=== PATIENT | female | born 1945 | race African-American/Black ===

== ENCOUNTER 2017-08-11 23:16 | Observation (INO) | payer SELFPAY ==
[2017-08-11] MEDS ORDERED: Albuterol/Ipratropium 3.0-0.5 MG/3 ML Neb Soln NEB ONE (23:28)
[2017-08-11] MEDS ORDERED: methylPREDNISolone Sodium Succinate 125 MG/2 ML SDV IVPUSH ONE (23:28)
[2017-08-11] MEDS ORDERED: Sodium Chloride 0.9% 1,000 ML IV SCH (23:30)
--- NOTE | 2017-08-11 23:35 | EDM.PDOC ---
ED HPI GENERAL MEDICAL PROBLEM - General Chief Complaint: Respiratory Problem Stated Complaint: ASTHMA Time Seen by Provider: 08/11/17 23:34 Source of Information: Reports: Patient - History of Present Illness INITIAL COMMENTS - FREE TEXT/NARRATIVE: HISTORY AND PHYSICAL: History of present illness: [ Patient with history of COPD asthma has been out of her medication for a week or so as far as nebulizer treatments, she presents with audible wheeze and shortness of breath she is hypoxic on room air No fever nausea vomiting chills sweats no chest pain headache dizziness or palpitation no bowel or urine symptoms Patient has been out of her neb treatments for over a week ] Review of systems: As per history of present illness and below otherwise all systems reviewed and negative. Past medical history: As per history of present illness and as reviewed below otherwise noncontributory. Surgical history: As per history of present illness and as reviewed below otherwise noncontributory. Social history: No reported history of drug or alcohol abuse. Family history: As per history of present illness and as reviewed below otherwise noncontributory. Physical exam: HEENT: Atraumatic, normocephalic, pupils reactive, negative for conjunctival pallor or scleral icterus, mucous membranes moist, throat clear, neck supple, nontender, trachea midline. Lungs: Coarse breath sounds with expiratory wheeze throughout, breath sounds equal bilaterally, chest nontender. Heart: S1S2, regular, negative for clicks, rubs, or JVD. Abdomen: Soft, nondistended, nontender. Negative for masses or hepatosplenomegaly. Negative for costovertebral tenderness. Pelvis: Stable nontender. Genitourinary: Deferred. Rectal: Deferred. Extremities: Atraumatic, negative for cords or calf pain. Neurovascular unremarkable. Neuro: Awake, alert, oriented. Cranial nerves II through XII unremarkable. Cerebellum unremarkable. Motor and sensory unremarkable throughout. Exam nonfocal. Diagnostics: [Lab as below EKG Chest 1 view ] Therapeutics: [DuoNeb Solu-Medrol 125 mg IV ] Impression: [Hypoxia]-88% on room air COPD asthma Hypertension Definitive disposition and diagnosis as appropriate pending reevaluation and review of above. denies pain Pain Score (Numeric/FACES): 0 - Related Data Allergies Allergy/AdvReac Type Severity Reaction Status Date / Time No Known Allergies Allergy Verified 08/11/17 23:29 Home Meds: Home Meds Prednisone [IJD: predniSONE] 20 mg PO WITHBREAKFAST #12 tab 05/14/16 [Rx] Albuterol [IJD: Albuterol HFA] 2 puff INH ASDIRECTED PRN 08/11/17 [History] Past Medical History - Past Health History Medical/Surgical History: Denies Medical/Surgical History HEENT History: Reports: None Cardiovascular History: Reports: None Respiratory History: Reports: Asthma Gastrointestinal History: Reports: None Genitourinary History: Reports: None 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: Musculoskeletal History: Reports: None Neurological History: Reports: None Psychiatric History: Reports: None Endocrine/Metabolic History: Reports: None Hematologic History: Reports: None Immunologic History: Reports: None Oncologic (Cancer) History: Reports: None Dermatologic History: Reports: None - Past Surgical History Head Surgeries/Procedures: Reports: None HEENT Surgical History: Reports: None Cardiovascular Surgical History: Reports: None GI Surgical History: Reports: None Female Surgical History: Reports: None Endocrine Surgical History: Reports: None Neurological Surgical History: Reports: None Musculoskeletal Surgical History: Reports: None Dermatological Surgical History: Reports: None Social & Family History - Tobacco Use Smoking Status *Q: Former Smoker Years of Tobacco use: 7 Packs/Tins Daily: 1 Used Tobacco, but Quit: Yes Month Tobacco Last Used: 2009 Second Hand Smoke Exposure: No - Recreational Drug Use Recreational Drug Use: No ED ROS GENERAL - Review of Systems Review Of Systems: ROS reveals no pertinent complaints other than HPI. ED EXAM, GENERAL - Physical Exam Exam: See Below Course - Vital Signs Last Recorded V/S: Last Vital Signs Temp 96.8 F 08/11/17 23:30 Pulse 81 08/12/17 00:39 Resp 24 H 08/12/17 00:39 BP 153/97 H 08/12/17 00:39 Pulse Ox 97 08/12/17 00:39 - Orders/Labs/Meds Orders: Active Orders 24 hr Category Date Time Status EKG Documentation Completion [RC] STAT Care 08/11/17 23:29 Active RT Aerosol Therapy [RC] ASDIRECTED Care 08/11/17 23:29 Active Chest 1V Frontal [CR] Stat Exams 08/11/17 23:29 Taken COMPREHENSIVE METABOLIC PN,CMP [CHEM] Stat Lab 08/11/17 23:28 Results TROPONIN I [CHEM] Stat Lab 08/11/17 23:28 Results Nitroglycerin [Nitrostat] Med 08/11/17 23:51 Active 0.4 mg SL Q5M PRN Sodium Chloride 0.9% [Normal Saline] 500 ml Med 08/11/17 23:45 Active IV STAT Medication Orders Sodium Chloride (Normal Saline) 500 mls @ 125 mls/hr IV STAT DUSTY Last Admin: 08/11/17 23:43 Dose: 125 mls/hr Nitroglycerin (Nitrostat) 0.4 mg SL Q5M PRN PRN Reason: Chest Pain Labs: Laboratory Tests 08/11/17 08/11/17 08/12/17 Range/Units 23:28 23:28 00:15 WBC 10.86 (4.0-11.0) K/uL RBC 5.62 (4.30-5.90) M/uL Hgb 16.0 (12.0-16.0) g/dL Hct 48.9 H (36.0-46.0) % MCV 87.0 (80.0-98.0) fL MCH 28.5 (27.0-32.0) pg MCHC 32.7 (31.0-37.0) g/dL RDW Std Deviation 41.2 (28.0-62.0) fl RDW Coeff of Jose 13 (11.0-15.0) % Plt Count 218 (150-400) K/uL MPV 11.00 (7.40-12.00) fL Neut % (Auto) 29.9 L (48.0-80.0) % Lymph % (Auto) 60.0 H (16.0-40.0) % [place] % (Auto) 5.8 (0.0-15.0) % Eos % (Auto) 4.0 (0.0-7.0) % Baso % (Auto) 0.3 (0.0-1.5) % Neut # (Auto) 3.3 (1.4-5.7) K/uL Lymph # (Auto) 6.5 H (0.6-2.4) K/uL [place] # (Auto) 0.6 (0.0-0.8) K/uL Eos # (Auto) 0.4 (0.0-0.7) K/uL Baso # (Auto) 0.0 (0.0-0.1) K/uL Nucleated RBC % 0.0 /100WBC Nucleated RBCs # 0 K/uL Sodium 141 (136-146) mmol/L Potassium 4.3 (3.5-5.1) mmol/L Chloride 104 (98-110) mmol/L Carbon Dioxide 27 (21-31) mmol/L BUN 16 (6.0-23.0) mg/dL Creatinine 0.8 (0.6-1.5) mg/dL Est Cr Clr Drug Dosing 47.00 mL/min Estimated GFR (MDRD) > 60.0 ml/min Glucose 129 H (60-110) mg/dL Calcium 9.7 (8.8-10.8) mg/dL Total Bilirubin 0.3 (0.1-1.5) mg/dL AST 30 (5-40) IU/L ALT 16 (8-54) IU/L Alkaline Phosphatase 100 (40-150) Total Protein 8.9 H (6.0-8.0) g/dL Albumin 4.4 (3.4-4.8) g/dL Globulin 4.5 H (2.0-3.5) g/dL Albumin/Globulin Ratio 1.0 L (1.3-2.8) Urine Color YELLOW Urine Appearance CLEAR Urine pH 6.5 (5.0-8.0) Ur Specific [place] 1.010 (1.001-1.035) Urine Protein TRACE (NEGATIVE) mg/dL Urine Glucose (UA) NEGATIVE (NEGATIVE) mg/dL Urine Ketones NEGATIVE (NEGATIVE) mg/dL Urine Occult Blood TRACE-INTACT (NEGATIVE) Urine Nitrite NEGATIVE (NEGATIVE) Urine Bilirubin NEGATIVE (NEGATIVE) Urine Urobilinogen 0.2 (<2.0) EU/dL Ur Leukocyte Esterase NEGATIVE (NEGATIVE) Urine RBC 0-1 (0-2/HPF) Urine WBC 0-3 (0-5/HPF) Ur Epithelial Cells OCCASIONAL (NONE-FEW) Urine Bacteria RARE (NEGATIVE) Meds: Medications Generic Name Dose Route Start Last Admin Trade Name Freq PRN Reason Stop Dose Admin Sodium Chloride 500 mls @ 125 mls/hr 08/11/17 23:45 08/11/17 23:43 Normal Saline IV 125 mls/hr STAT DUSTY Administration Nitroglycerin 0.4 mg 08/11/17 23:51 Nitrostat SL Q5M PRN Chest Pain Discontinued Medications Generic Name Dose Route Start Last Admin Trade Name Yunior PRN Reason Stop Dose Admin Albuterol/Ipratropium 3 ml 08/11/17 23:28 08/11/17 23:38 Duoneb 3.0-0.5 Mg/3 Ml NEB 08/11/17 23:29 3 ml ONETIME ONE Administration Enalaprilat 1.25 mg 08/11/17 23:52 08/12/17 00:04 Vasotec Iv IVPUSH 08/11/17 23:53 1.25 mg ONETIME ONE Administration Sodium Chloride 1,000 mls @ 125 mls/hr 08/11/17 23:30 Normal Saline IV STAT [facility] Methylprednisolone Sodium Succinate 125 mg 08/11/17 23:28 08/11/17 23:38 Solu-Medrol IVPUSH 08/11/17 23:29 125 mg ONETIME ONE Administration Departure - Departure Time of Disposition: 00:43 Disposition: Admitted As Inpatient 68 Condition: Fair Clinical Impression: Hypoxia - Discharge Information Referrals: PCP,None [Primary Care Provider] - Forms: ED Department Discharge - My Orders Last 24 Hours: My Active Orders 08/11/17 23:28 COMPREHENSIVE METABOLIC PN,CMP [CHEM] Stat TROPONIN I [CHEM] Stat 08/11/17 23:29 EKG Documentation Completion [RC] STAT RT Aerosol Therapy [RC] ASDIRECTED Chest 1V Frontal [CR] Stat 08/11/17 23:45 Sodium Chloride 0.9% [Normal Saline] 500 ml IV STAT 08/11/17 23:51 Nitroglycerin [Nitrostat] 0.4 mg SL Q5M PRN - Assessment/Plan Last 24 Hours: My Active Orders 08/11/17 23:28 COMPREHENSIVE METABOLIC PN,CMP [CHEM] Stat TROPONIN I [CHEM] Stat 08/11/17 23:29 EKG Documentation Completion [RC] STAT RT Aerosol Therapy [RC] ASDIRECTED Chest 1V Frontal [CR] Stat 08/11/17 23:45 Sodium Chloride 0.9% [Normal Saline] 500 ml IV STAT 08/11/17 23:51 Nitroglycerin [Nitrostat] 0.4 mg SL Q5M PRN
[2017-08-11] MEDS ORDERED: Sodium Chloride 0.9% 500 ML IV SCH (23:45)
[2017-08-11] MEDS ORDERED: Nitroglycerin 0.4 MG Tab.SL SL PRN (23:51)
[2017-08-11] MEDS ORDERED: Enalaprilat 1.25 MG/ML SDV IVPUSH ONE (23:52)
[2017-08-11 23:54] LABS: CHLORIDE,CL 104 mmol/L (98-110); SODIUM,NA 141 mmol/L (136-146)
[2017-08-12] MEDS ORDERED: Acetaminophen 325 MG Tab PO PRN (01:23)
[2017-08-12] MEDS ORDERED: hydrALAZINE 20 MG/ML SDV IVPUSH PRN (01:24)
[2017-08-12] MEDS ORDERED: Sodium Chloride 0.9% 2.5 ML Syringe FLUSH PRN (01:30)
[2017-08-12] MEDS ORDERED: Sodium Chloride 0.9% 10 ML Syringe FLUSH PRN (01:30)
[2017-08-12] MEDS: Albuterol/Ipratropium 3.0-0.5 MG/3 ML Neb Soln NEB SCH ×3 (03:56→10:19)
[2017-08-12] MEDS ORDERED: methylPREDNISolone Sodium Succinate 125 MG/2 ML SDV IVPUSH ONE (05:00)
[2017-08-12] MEDS ORDERED: Albuterol/Ipratropium 3.0-0.5 MG/3 ML Neb Soln NEB SCH (05:00)
--- NOTE | 2017-08-12 11:04 | PCM.HP ---
H&P History of Present Illness - General Date of Service: 08/12/17 Admit Problem/Dx: Admission Diagnosis/Problem Admission Diagnosis/Problem Hypoxia Source of Information: Patient, Family History Limitations: Reports: No Limitations - History of Present Illness Initial Comments - Free Text/Narative: Note: This is admission and discharge summary in one document. 72-year-old female from [facility] accompanied by daughter who helps with translation presenting to the ER on 08/11/17 with shortness of breath with PMH of asthma. Daughter states that her mother began to have some shortness of breath with wheezing approximately one day before presenting to the emergency room. She states that they recently ran out of her albuterol rescue inhaler. Secondary to her symptoms not improving they presented to the emergency room on the evening of 08/11/17. Daughter states that her mother does not use her rescue inhaler on a regular basis. Less than once a week. She states that her primary exacerbating factors are cold weather and with the change in season she has been more symptomatic. During other parts of the year where it is warmer she does not use her rescue inhaler at all. She denies any associated fever, chills , malaise, nausea, vomiting, diarrhea or other signs of systemic illness. She has no other significant medical history and takes no other medications other than the occasional albuterol rescue inhaler. She has been in [facility] for approximately 2 years. Her daughter has been here for 4. She does not have a primary care provider but would like to be set up with one. In emergency department patient was found to be hypoxic which resolved with DuoNeb's and IV Solu-Medrol 125 mg. Patient was admitted overnight and given duo nebs every 4 hours with 1 additional dose of Solu-Medrol. CBC, CMP were unremarkable. On the first morning of admission patient was saturating 97% on room air and had no further episodes of shortness of breath. She was afebrile throughout her stay and was discharged in good condition with a follow-up appointment made for a primary care provider, prednisone 40 mg twice a day 5 days, and a new albuterol rescue inhaler. Patient was instructed to return immediately if she had any return of her shortness of breath. Patient has mild asthma but would benefit from further pulmonary function tests on follow-up with her PCP. denies pain Pain Score (Numeric/FACES): 0 - Related Data Allergies/Adverse Reactions: Allergies Allergy/AdvReac Type Severity Reaction Status Date / Time No Known Allergies Allergy Verified 08/11/17 23:29 Home Medications: Home Meds Prednisone [IJD: predniSONE] 20 mg PO WITHBREAKFAST #12 tab 05/14/16 [Rx] Albuterol [IJD: Albuterol HFA] 2 puff INH ASDIRECTED PRN 08/11/17 [History] Past Medical History - Past Health History Medical/Surgical History: Denies Medical/Surgical History HEENT History: Reports: None Cardiovascular History: Reports: None Respiratory History: Reports: Asthma Gastrointestinal History: Reports: None Genitourinary History: Reports: None 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 History: Reports: None Neurological History: Reports: None Psychiatric History: Reports: None Endocrine/Metabolic History: Reports: None Hematologic History: Reports: None Immunologic History: Reports: None Oncologic (Cancer) History: Reports: None Dermatologic History: Reports: None - Infectious Disease History Infectious Disease History: Reports: Chicken Pox - Past Surgical History Head Surgeries/Procedures: Reports: None HEENT Surgical History: Reports: None Cardiovascular Surgical History: Reports: None GI Surgical History: Reports: None Female Surgical History: Reports: None Endocrine Surgical History: Reports: None Neurological Surgical History: Reports: None Musculoskeletal Surgical History: Reports: None Dermatological Surgical History: Reports: None Social & Family History - Family History Family Medical History: Noncontributory - Tobacco Use Smoking Status *Q: Former Smoker Years of Tobacco use: 7 Packs/Tins Daily: 1 Used Tobacco, but Quit: Yes Month Tobacco Last Used: 08/1998 Second Hand Smoke Exposure: No - Caffeine Use Caffeine Use: Reports: Coffee - Recreational Drug Use Recreational Drug Use: No H&P Review of Systems - Review of Systems: Review Of Systems: See Below General: Denies: Fever, Chills, Malaise, Weakness, Fatigue HEENT: Denies: Dysphasia, Headaches, Sinus Congestion, Sore Throat Pulmonary: Reports: Cough. Denies: Shortness of Breath, Wheezing, Sputum Cardiovascular: Denies: Chest Pain, Palpitations, Edema Gastrointestinal: Denies: Abdominal Pain, Black Stool, Bloody Stool, Nausea, Vomiting Genitourinary: Denies: Dysuria Musculoskeletal: Denies: Neck Pain, Leg Pain Skin: Denies: Cyanosis Psychiatric: Denies: Confusion Neurological: Denies: Confusion, Dizziness, Headache Exam - Exam Exam: See Below - Vital Signs Vital Signs: Last Vital Signs Temp 97.2 F 08/12/17 08:22 Pulse 89 08/12/17 08:22 Resp 18 08/12/17 08:22 BP 122/60 08/12/17 08:22 Pulse Ox 94 L 08/12/17 08:22 Weight: 54.25 kg - Exam Quality Assessment: DVT Prophylaxis General: Alert, Oriented, Cooperative HEENT: Conjunctiva Clear, EACs Clear, EOMI, Hearing Intact, Mucosa Moist & [place] , Nares Patent, Normal Nasal Septum, Posterior Pharynx Clear, PERRLA Neck: Supple, Trachea Midline, 2 Lungs: Clear to Auscultation, Normal Respiratory Effort. No: Crackles, Rales, Wheezing Cardiovascular: Regular Rate, Regular Rhythm, Normal S1, Normal S2 GI/Abdominal Exam: Normal Bowel Sounds, Soft, Non-Tender, No Organomegaly, No Distention, No Abnormal Bruit, No Mass Back Exam: Normal Inspection Extremities: Normal Inspection, Non-Tender, No Pedal Edema, Normal Capillary Refill Peripheral Pulses: 2+: Radial (L), Radial (R), Posterior Tibial (L), Posterior Tibial (R), Dorsalis Pedis (L), Dorsalis Pedis (R) Skin: Warm, Dry, Intact Neurological: Cranial Nerves Intact Neuro Extensive - Mental Status: Alert, Oriented x3, Normal Mood/Affect, Normal Cognition Neuro Extensive - Motor, Sensory, Reflexes: CN II-XII Intact, Normal Gait, Normal Reflexes Psychiatric: Alert, Normal Affect, Normal Mood - Patient Data Lab Results Last 24 hrs: Laboratory Results - last 24 hr 08/12/17 08/12/17 08/12/17 Range/Units 05:36 05:36 05:36 WBC 8.30 (4.0-11.0) K/uL RBC 4.97 (4.30-5.90) M/uL Hgb 14.0 (12.0-16.0) g/dL Hct 43.1 (36.0-46.0) % MCV 86.7 (80.0-98.0) fL MCH 28.2 (27.0-32.0) pg MCHC 32.5 (31.0-37.0) g/dL RDW Std Deviation 40.9 (28.0-62.0) fl RDW Coeff of Jose 13 (11.0-15.0) % Plt Count 212 (150-400) K/uL MPV 11.00 (7.40-12.00) fL Neut % (Auto) 73.9 (48.0-80.0) % Lymph % (Auto) 25.9 (16.0-40.0) % [place] % (Auto) 0.1 (0.0-15.0) % Eos % (Auto) 0.0 (0.0-7.0) % Baso % (Auto) 0.1 (0.0-1.5) % Neut # (Auto) 6.1 H (1.4-5.7) K/uL Lymph # (Auto) 2.2 (0.6-2.4) K/uL [place] # (Auto) 0.0 (0.0-0.8) K/uL Eos # (Auto) 0.0 (0.0-0.7) K/uL Baso # (Auto) 0.0 (0.0-0.1) K/uL Nucleated RBC % 0.0 /100WBC Nucleated RBCs # 0 K/uL Sodium 139 (136-146) mmol/L Potassium 4.3 (3.5-5.1) mmol/L Chloride 105 (98-110) mmol/L Carbon Dioxide 24 (21-31) mmol/L BUN 23 (6.0-23.0) mg/dL Creatinine 1.2 (0.6-1.5) mg/dL Est Cr Clr Drug Dosing 31.33 mL/min Estimated GFR (MDRD) 53.8 ml/min Glucose 202 H (60-110) mg/dL Hemoglobin A1c 6.5 H (0.0-6.0) % Calcium 9.2 (8.8-10.8) mg/dL Total Bilirubin 0.3 (0.1-1.5) mg/dL AST 23 (5-40) IU/L ALT 14 (8-54) IU/L Alkaline Phosphatase 79 (40-150) Total Protein 7.3 (6.0-8.0) g/dL Albumin 3.9 (3.4-4.8) g/dL Globulin 3.4 (2.0-3.5) g/dL Albumin/Globulin Ratio 1.2 L (1.3-2.8) Result Diagrams: 08/12/17 05:36 08/12/17 05:36 *Q Meaningful Use (ADM) - VTE *Q VTE Criteria *Q: - Stroke *Q Stroke Criteria *Q: - AMI *Q AMI Criteria *Q: - Problem List (1) Exacerbation of asthma SNOMED Code(s): 154359489 ICD Code: J45.901 - UNSPECIFIED ASTHMA WITH (ACUTE) EXACERBATION Status: Acute Priority: High Current Visit: Yes Qualifiers: Asthma severity: mild Asthma persistence: persistent Qualified Code(s): J45.31 - Mild persistent asthma with (acute) exacerbation Problem List Initiated/Reviewed/Updated: Yes Orders Last 24hrs: Active Orders 24 hr Category Date Time Status Admission Status [Patient Status] [ADT] Routine ADT 08/12/17 01:21 Active RT Aerosol Therapy [RC] ASDIRECTED Care 08/12/17 01:27 Active Regular Diet [DIET] Diet 08/12/17 Breakfast Active INFLUENZA A+B AG SCREEN [RM] Stat Lab 08/12/17 08:23 Uncollected Acetaminophen [Tylenol] Med 08/12/17 01:23 Active 650 mg PO Q6H PRN Albuterol/Ipratropium [DuoNeb 3.0-0.5 MG/3 ML] Med 08/12/17 04:00 Active 3 ml NEB Q4HRRT Sodium Chloride 0.9% [Saline Flush] Med 08/12/17 01:30 Active 10 ml FLUSH ASDIRECTED PRN Sodium Chloride 0.9% [Saline Flush] Med 08/12/17 01:30 Active 2.5 ml FLUSH ASDIRECTED PRN hydrALAZINE [Apresoline] Med 08/12/17 01:24 Active 15 mg IVPUSH Q2H PRN Convert IV to Saline Lock [OM.PC] Routine Oth 08/12/17 01:30 Ordered Medication Orders Acetaminophen (Tylenol) 650 mg PO Q6H PRN PRN Reason: Pain Albuterol/Ipratropium (Duoneb 3.0-0.5 Mg/3 Ml) 3 ml NEB Q4HRRT DUSTY Last Admin: 08/12/17 10:19 Dose: 3 ml Admin: 08/12/17 06:18 Dose: 3 ml Admin: 08/12/17 03:56 Dose: 3 ml Hydralazine HCl (Apresoline) 15 mg IVPUSH Q2H PRN PRN Reason: Hypertension Last Admin: 08/12/17 01:43 Dose: 15 mg Nitroglycerin (Nitrostat) 0.4 mg SL Q5M PRN PRN Reason: Chest Pain Sodium Chloride (Saline Flush) 10 ml FLUSH ASDIRECTED PRN PRN Reason: Keep Vein Open Sodium Chloride (Saline Flush) 2.5 ml FLUSH ASDIRECTED PRN PRN Reason: Keep Vein Open Assessment/Plan Comment:: Note: This is admission and discharge summary in one document. 72-year-old female from [facility] accompanied by daughter who helps with translation presenting to the ER on 08/11/17 with shortness of breath with PMH of asthma. Daughter states that her mother began to have some shortness of breath with wheezing approximately one day before presenting to the emergency room. She states that they recently ran out of her albuterol rescue inhaler. Secondary to her symptoms not improving they presented to the emergency room on the evening of 08/11/17. Daughter states that her mother does not use her rescue inhaler on a regular basis. Less than once a week. She states that her primary exacerbating factors are cold weather and with the change in season she has been more symptomatic. During other parts of the year where it is warmer she does not use her rescue inhaler at all. She denies any associated fever, chills , malaise, nausea, vomiting, diarrhea or other signs of systemic illness. She has no other significant medical history and takes no other medications other than the occasional albuterol rescue inhaler. She has been in [facility] for approximately 2 years. Her daughter has been here for 4. She does not have a primary care provider but would like to be set up with one. In emergency department patient was found to be hypoxic which resolved with DuoNeb's and IV Solu-Medrol 125 mg. Patient was admitted overnight and given duo nebs every 4 hours with 1 additional dose of Solu-Medrol. CBC, CMP were unremarkable. On the first morning of admission patient was saturating 97% on room air and had no further episodes of shortness of breath. She was afebrile throughout her stay and was discharged in good condition with a follow-up appointment made for a primary care provider, prednisone 40 mg twice a day 5 days, and a new albuterol rescue inhaler. Patient was instructed to return immediately if she had any return of her shortness of breath. Patient has mild asthma but would benefit from further pulmonary function tests on follow-up with her PCP.
[2017-08-12 12:04] VITALS: BP 132/79
[2017-08-13] MEDS ORDERED: Enoxaparin 40 MG/0.4 ML Syringe SUBCUT SCH (09:00)
--- NOTE | 2017-08-15 13:28 | CR ---
EXAM DATE: 08/12/17 PATIENT'S AGE: 72 Patient: CURLY GENE Facility: [place], [place] Site . Site : 1945 Study: XRay Chest [id number] 11:52:40 PM Ordering Physician: Doctor Durán Final Report: HISTORY: Shortness of breath. FINDINGS: AP portable chest radiograph is compared with 24 February 2016. Cardiac silhouette is at the upper limits normal. Pulmonary vasculature is free of cephalization. No consolidation, pleural effusion or pneumothorax is seen. There is pleural thickening seen at the right upper thorax without change. IMPRESSION: No acute cardiopulmonary disease. Dictated by Caridad Thakur MD @ 08/11/2017 11:58:52 PM Dictated by: Caridad Thakur MD @ 08/11/2017 23:58:55 (Electronic Signature) Report Signed by Proxy. ST. PETER'S HEALTH PARTNERSClementine
== END 2017-08-12 13:10 | disposition home or self-care (01) ==
LOC: MW.ED 23:16 → MW.MS 08-12 00:44 → INTOOBSV 08-12 00:44
PROVIDERS: ADMIT Family Medicine; ATTEND Family Medicine
DX: J45.31 Mild persistent asthma with (acute) exacerbation (principal); Z87.891 Personal history of nicotine dependence
CPT/HCPCS: 36415; 71010; 80053; 81001; 83036; 84484; 85025; 87804; 93005; 94640; 96361; 96374; 96375; 99285; J0360; J2930; J7040; 96376; 99284; G0378

== ENCOUNTER 2018-09-17 18:55 | Emergency (ER) | payer SELFPAY ==
[2018-09-17] MEDS ORDERED: Albuterol/Ipratropium 3.0-0.5 MG/3 ML Neb Soln ONE (18:57)
[2018-09-17] MEDS ORDERED: Albuterol/Ipratropium 3.0-0.5 MG/3 ML Neb Soln NEB ONE (19:00)
[2018-09-17 19:03] VITALS: BP 235/134
[2018-09-17] MEDS ORDERED: methylPREDNISolone Sodium Succinate 125 MG/2 ML SDV IVPUSH ONE (19:32)
--- NOTE | 2018-09-17 19:36 | EDM.PDOC ---
ED HPI GENERAL MEDICAL PROBLEM - General Chief Complaint: Respiratory Problem Stated Complaint: ASTHMA- TROUBLE BREATHING Time Seen by Provider: 09/17/18 19:19 - History of Present Illness INITIAL COMMENTS - FREE TEXT/NARRATIVE: HISTORY AND PHYSICAL: History of present illness: Patient is a 73-year-old black female with past medical history significant for hypertension pseudotumor cerebri in bronchospasm who presents with a concern of shortness of breath she describes this as an asthmatic exacerbation she denies chest pain nausea vomiting fever chills or been no other complaints she denies influenza immunization there is a language challenge although she does have family here with her who does speak Malay and is translating. Review of systems: As per history of present illness and below otherwise all systems reviewed and negative. Past medical history: As per history of present illness and as reviewed below otherwise noncontributory. Surgical history: As per history of present illness and as reviewed below otherwise noncontributory. Social history: No reported history of drug or alcohol abuse. Family history: As per history of present illness and as reviewed below otherwise noncontributory. Physical exam: HEENT: Atraumatic, normocephalic, pupils reactive, negative for conjunctival pallor or scleral icterus, mucous membranes moist, throat clear, neck supple, nontender, trachea midline. Lungs: Diffuse intradural and extra wheezing no crackles no rhonchi breath sounds equal bilaterally, chest nontender. Heart: S1S2, regular, negative for clicks, rubs, or JVD. Abdomen: Soft, nondistended, nontender. Negative for masses or hepatosplenomegaly. Negative for costovertebral tenderness. Pelvis: Stable nontender. Genitourinary: Deferred. Rectal: Deferred. Extremities: Atraumatic, negative for cords or calf pain. Neurovascular unremarkable. Neuro: Awake, alert, follows commands and moves all extremities limited grossly nonfocal exam Diagnostics: CBC CMP troponin PT/INR chest x-ray EKG influenza screen Therapeutics: IV O2 monitor albuterol ipratropium nebulizer Solu-Medrol 125 IV Impression: #1 dyspnea #2 reactive airway disease #3 history hypertension #4 history of pseudotumor cerebri Definitive disposition and diagnosis as appropriate pending reevaluation and review of above. 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: Inhaler - Related Data Allergies Allergy/AdvReac Type Severity Reaction Status Date / Time No Known Allergies Allergy Verified 09/17/18 19:03 Home Meds: Home Meds Albuterol [IJD: Albuterol HFA] 2 puff INH ASDIRECTED PRN #1 inhaler 08/12/17 [Rx ] Albuterol/Ipratropium [DuoNeb 3.0-0.5 MG/3 ML] 1 dose INH Q4HR PRN #1 box [Rx] Past Medical History - Past Health History Medical/Surgical History: Denies Medical/Surgical History HEENT History: Reports: None Cardiovascular History: Reports: Hypertension Respiratory History: Reports: Asthma Gastrointestinal History: Reports: None Genitourinary History: Reports: None [employer]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: Musculoskeletal History: Reports: None Neurological History: Reports: None Psychiatric History: Reports: None Endocrine/Metabolic History: Reports: None Hematologic History: Reports: None Immunologic History: Reports: None Oncologic (Cancer) History: Reports: None Dermatologic History: Reports: None - Infectious Disease History Infectious Disease History: Reports: Chicken Pox - Past Surgical History Head Surgeries/Procedures: Reports: None HEENT Surgical History: Reports: None Cardiovascular Surgical History: Reports: None GI Surgical History: Reports: None Female Surgical History: Reports: None Endocrine Surgical History: Reports: None Neurological Surgical History: Reports: None Musculoskeletal Surgical History: Reports: None Dermatological Surgical History: Reports: None Social & Family History - Family History Family Medical History: Noncontributory - Tobacco Use Smoking Status *Q: Never Smoker - Caffeine Use Caffeine Use: Reports: Coffee Caffeine Use Comment: daily - Recreational Drug Use Recreational Drug Use: No ED ROS GENERAL - Review of Systems Review Of Systems: ROS reveals no pertinent complaints other than HPI. ED EXAM, GENERAL - Physical Exam Exam: See Below (See dictation) Course - Vital Signs Text/Narrative:: Patient emerged from her course has been unremarkable she has marked improvement I discussed with her due to her advanced age and comorbidities admission for observation patient and family request discharge home and will follow-up with her private doctor she'll be discharged on Medrol taking as prescribed and continue her current medications including inhalers as directed and return as needed as discussed Last Recorded V/S: Last Vital Signs Temp 36.3 C 09/17/18 18:55 Pulse 108 H 09/17/18 18:55 Resp 32 H 09/17/18 18:55 BP 235/134 H 09/17/18 18:55 Pulse Ox 93 L 09/17/18 18:55 - Orders/Labs/Meds Orders: Active Orders 24 hr Category Date Time Status Cardiac Monitoring [RC] . DIRECTED Care 09/17/18 19:29 Active EKG Documentation Completion [RC] STAT Care 09/17/18 19:29 Active Pulse Oximetry [RC] ASDIRECTED Care 09/17/18 19:29 Active RT Aerosol Therapy [RC] ASDIRECTED Care 09/17/18 19:43 Active Labs: Laboratory Tests 09/17/18 09/17/18 09/17/18 Range/Units 19:10 19:10 19:10 WBC 8.90 (4.0-11.0) K/uL RBC 5.73 (4.30-5.90) M/uL Hgb 16.1 H (12.0-16.0) g/dL Hct 48.4 H (36.0-46.0) % MCV 84.5 (80.0-98.0) fL MCH 28.1 (27.0-32.0) pg MCHC 33.3 (31.0-37.0) g/dL RDW Std Deviation 40.4 (28.0-62.0) fl RDW Coeff of Jose 13 (11.0-15.0) % Plt Count 197 (150-400) K/uL MPV 10.70 (7.40-12.00) fL Neut % (Auto) 34.7 L (48.0-80.0) % Lymph % (Auto) 55.2 H (16.0-40.0) % [place] % (Auto) 6.6 (0.0-15.0) % Eos % (Auto) 3.1 (0.0-7.0) % Baso % (Auto) 0.4 (0.0-1.5) % Neut # (Auto) 3.1 (1.4-5.7) K/uL Lymph # (Auto) 4.9 H (0.6-2.4) K/uL [place] # (Auto) 0.6 (0.0-0.8) K/uL Eos # (Auto) 0.3 (0.0-0.7) K/uL Baso # (Auto) 0.0 (0.0-0.1) K/uL Nucleated RBC % 0.0 /100WBC Nucleated RBCs # 0 K/uL INR 1.03 Sodium 142 (136-145) mmol/L Potassium 4.2 (3.5-5.1) mmol/L Chloride 104 (98-107) mmol/L Carbon Dioxide 26.8 (21.0-32.0) mmol/L BUN 18 (7.0-18.0) mg/dL Creatinine 0.9 (0.6-1.0) mg/dL Est Cr Clr Drug Dosing TNP Estimated GFR (MDRD) > 60.0 ml/min Glucose 170 H (74-106) mg/dL Calcium 9.9 (8.5-10.1) mg/dL Total Bilirubin 0.1 L (0.2-1.0) mg/dL AST 27 (15-37) IU/L ALT 15 (14-63) IU/L Alkaline Phosphatase 114 (46-116) U/L Troponin I < 0.050 (0.000-0.056) ng/mL B-Natriuretic Peptide (<100) PG/ML Total Protein 8.9 H (6.4-8.2) g/dL Albumin 4.1 (3.4-5.0) g/dL Globulin 4.8 H (2.6-4.0) g/dL Albumin/Globulin Ratio 0.9 (0.9-1.6) 09/17/18 Range/Units 19:10 WBC (4.0-11.0) K/uL RBC (4.30-5.90) M/uL Hgb (12.0-16.0) g/dL Hct (36.0-46.0) % MCV (80.0-98.0) fL MCH (27.0-32.0) pg MCHC (31.0-37.0) g/dL RDW Std Deviation (28.0-62.0) fl RDW Coeff of Jose (11.0-15.0) % Plt Count (150-400) K/uL MPV (7.40-12.00) fL Neut % (Auto) (48.0-80.0) % Lymph % (Auto) (16.0-40.0) % [place] % (Auto) (0.0-15.0) % Eos % (Auto) (0.0-7.0) % Baso % (Auto) (0.0-1.5) % Neut # (Auto) (1.4-5.7) K/uL Lymph # (Auto) (0.6-2.4) K/uL [place] # (Auto) (0.0-0.8) K/uL Eos # (Auto) (0.0-0.7) K/uL Baso # (Auto) (0.0-0.1) K/uL Nucleated RBC % /100WBC Nucleated RBCs # K/uL INR Sodium (136-145) mmol/L Potassium (3.5-5.1) mmol/L Chloride (98-107) mmol/L Carbon Dioxide (21.0-32.0) mmol/L BUN (7.0-18.0) mg/dL Creatinine (0.6-1.0) mg/dL Est Cr Clr Drug Dosing Estimated GFR (MDRD) ml/min Glucose (74-106) mg/dL Calcium (8.5-10.1) mg/dL Total Bilirubin (0.2-1.0) mg/dL AST (15-37) IU/L ALT (14-63) IU/L Alkaline Phosphatase (46-116) U/L Troponin I (0.000-0.056) ng/mL B-Natriuretic Peptide 51 (<100) PG/ML Total Protein (6.4-8.2) g/dL Albumin (3.4-5.0) g/dL Globulin (2.6-4.0) g/dL Albumin/Globulin Ratio (0.9-1.6) Meds: Medications Discontinued Medications Generic Name Dose Route Start Last Admin Trade Name Freq PRN Reason Stop Dose Admin Albuterol/Ipratropium Confirm 09/17/18 18:57 09/17/18 19:42 Duoneb 3.0-0.5 Mg/3 Ml Administered 09/17/18 18:58 Not Given Dose 3 ml .ROUTE .STK-MED ONE Albuterol/Ipratropium 3 ml 09/17/18 19:00 09/17/18 19:47 Duoneb 3.0-0.5 Mg/3 Ml NEB 01/28/19 19:01 3 ml ONETIME ONE Administration Methylprednisolone Sodium Succinate 125 mg 09/17/18 19:32 09/17/18 19:48 Solu-Medrol IVPUSH 09/17/18 19:33 125 mg ONETIME ONE Administration Departure - Departure Time of Disposition: 19:36 Disposition: Home, Self-Care 01 Condition: Good Clinical Impression: Reactive airway disease, Hypertension - Discharge Information Forms: ED Department Discharge Additional Instructions: The following information is given to patients seen in the emergency department who are being discharged to home. This information is to outline your options for follow-up care. We provide all patients seen in our emergency department with a follow-up referral. The need for follow-up, as well as the timing and circumstances, are variable depending upon the specifics of your emergency department visit. If you don't have a primary care physician on staff, we will provide you with a referral. We always advise you to contact your personal physician following an emergency department visit to inform them of the circumstance of the visit and for follow-up with them and/or the need for any referrals to a consulting specialist. The emergency department will also refer you to a specialist when appropriate. This referral assures that you have the opportunity for followup care with a specialist. All of these measure are taken in an effort to provide you with optimal care, which includes your followup. Under all circumstances we always encourage you to contact your private physician who remains a resource for coordinating your care. When calling for followup care, please make the office aware that this follow-up is from your recent emergency room visit. If for any reason you are refused follow-up, please contact the [facility] emergency department at and asked to speak to the emergency department charge nurse. Medrol as prescribed continue inhalers as directed follow-up primary medical doctor continue current medications as prescribed and return as needed as discussed - My Orders Last 24 Hours: My Active Orders 09/17/18 19:29 Cardiac Monitoring [RC] . DIRECTED EKG Documentation Completion [RC] STAT Pulse Oximetry [RC] ASDIRECTED 09/17/18 19:43 RT Aerosol Therapy [RC] ASDIRECTED - Assessment/Plan Last 24 Hours: My Active Orders 09/17/18 19:29 Cardiac Monitoring [RC] . DIRECTED EKG Documentation Completion [RC] STAT Pulse Oximetry [RC] ASDIRECTED 09/17/18 19:43 RT Aerosol Therapy [RC] ASDIRECTED
[2018-09-17 19:50] LABS: CHLORIDE,CL 104 mmol/L (98-107); SODIUM,NA 142 mmol/L (136-145)
--- NOTE | 2018-09-17 20:05 | CR ---
INDICATION: SOB, asthma TECHNIQUE: Chest 1 view. COMPARISON: 07/28/18 FINDINGS: Cardiovascular and mediastinum: Heart size and vasculature are normal in caliber and appearance. Mediastinum is within normal limits. Lungs and pleural spaces: Lungs are clear. No sign of infiltrate or mass. No sign of pleural effusion. No pneumothorax. Bones and soft tissues: No significant findings. IMPRESSION: Unremarkable chest. Dictated by: Cesar Barahona MD @ 09/17/2018 20:05:01 (Electronically Signed)
== END 2018-09-17 20:42 | disposition home or self-care (01) ==
LOC: MW.ED 18:55
DX: J45.909 Unspecified asthma, uncomplicated (principal); I10 Essential (primary) hypertension
CPT/HCPCS: 36415; 71045; 80053; 83880; 84484; 85025; 85610; 87804; 93005; 94640; 96374; 99285; J2930; 99284; J7620-GY

== ENCOUNTER 2020-11-09 13:09 | Emergency (ER) | payer OTHER ==
[2020-11-09] MEDS ORDERED: Albuterol/Ipratropium 3.0-0.5 MG/3 ML Neb Soln ONE (13:17)
--- NOTE | 2020-11-09 13:18 | EDM.PDOC ---
ED HPI GENERAL MEDICAL PROBLEM - General Chief Complaint: Respiratory Problem Stated Complaint: CANT BREATHE Time Seen by Provider: 11/09/20 13:16 Source of Information: Reports: Patient, Family History Limitations: Reports: Language Barrier - History of Present Illness INITIAL COMMENTS - FREE TEXT/NARRATIVE: Patient is a 75-year-old female who presents today for shortness of breath. Patient has history of asthma family states she went to her albuterol yesterday and since then has not had it. Patient has some wheezing feels like she cannot catch her breath. Patient denies any cough fever chills chest pain nausea vomiting. Patient dates that she rarely to use albuterol daily. Patient that she has not been admitted to the hospital in the past year but has visited for her asthma. - Related Data Allergies Allergy/AdvReac Type Severity Reaction Status Date / Time No Known Allergies Allergy Verified 11/09/20 13:12 Home Meds: Home Meds Albuterol [IJD: Albuterol HFA] 2 puff INH ASDIRECTED PRN #1 inhaler 08/12/17 [Rx] Albuterol/Ipratropium [DuoNeb 3.0-0.5 MG/3 ML] 1 dose INH Q4HR PRN #1 box 07/28/18 [Rx] predniSONE [Prednisone] 50 mg PO DAILY 5 Days #5 tablet 11/09/20 [Rx] Past Medical History - Past Health History Medical/Surgical History: Denies Medical/Surgical History HEENT History: Reports: None Cardiovascular History: Reports: Hypertension Respiratory History: Reports: Asthma Gastrointestinal History: Reports: None Genitourinary History: Reports: None 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 History: Reports: None Neurological History: Reports: None Psychiatric History: Reports: None Endocrine/Metabolic History: Reports: None Hematologic History: Reports: None Immunologic History: Reports: None Oncologic (Cancer) History: Reports: None Dermatologic History: Reports: None - Infectious Disease History Infectious Disease History: Reports: Chicken Pox - Past Surgical History Head Surgeries/Procedures: Reports: None HEENT Surgical History: Reports: None Cardiovascular Surgical History: Reports: None GI Surgical History: Reports: None Female Surgical History: Reports: None Endocrine Surgical History: Reports: None Neurological Surgical History: Reports: None Musculoskeletal Surgical History: Reports: None Dermatological Surgical History: Reports: None Social & Family History - Family History Family Medical History: No Pertinent Family History - Tobacco Use Tobacco Use Status *Q: Former Tobacco User Used Tobacco, but Quit: Yes Month/Year Tobacco Last Used: 1998 - Caffeine Use Caffeine Use: Reports: Coffee Caffeine Use Comment: daily - Recreational Drug Use Recreational Drug Use: No ED ROS GENERAL - Review of Systems Review Of Systems: See Below Constitutional: Reports: No Symptoms HEENT: Reports: No Symptoms Respiratory: Reports: Shortness of Breath, Wheezing Cardiovascular: Reports: No Symptoms Endocrine: Reports: No Symptoms GI/Abdominal: Reports: No Symptoms : Reports: No Symptoms Musculoskeletal: Reports: No Symptoms Skin: Reports: No Symptoms Neurological: Reports: No Symptoms Psychiatric: Reports: No Symptoms Hematologic/Lymphatic: Reports: No Symptoms Immunologic: Reports: No Symptoms ED EXAM, GENERAL - Physical Exam Exam: See Below Exam Limited By: Language Barrier General Appearance: Alert, WD/WN Head: Atraumatic Respiratory/Chest: No Respiratory Distress, Wheezing Cardiovascular: Normal Peripheral Pulses, Regular Rate, Rhythm GI/Abdominal: Normal Bowel Sounds, Soft, Non-Tender Neurological: Alert, Oriented #1 Interpretation EKG Date: 11/09/20 Time: 13:15 Rhythm: Other (sinus tachy) Rate (Beats/Min): 105 ST-T: Normal Course - Vital Signs Last Recorded V/S: Last Vital Signs Temp 97.6 F 11/09/20 13:12 Pulse 81 11/09/20 14:05 Resp 18 11/09/20 14:05 BP 135/87 11/09/20 14:05 Pulse Ox 94 L 11/09/20 14:05 - Orders/Labs/Meds Orders: Active Orders 24 hr Category Date Time Status RT Aerosol Therapy [RC] ASDIRECTED Care 11/09/20 14:27 Active Labs: Laboratory Tests 11/09/20 11/09/20 Range/Units 13:20 13:20 WBC 8.69 (4.0-11.0) K/uL RBC 5.52 (4.30-5.90) M/uL Hgb 15.8 (12.0-16.0) g/dL Hct 48.5 H (36.0-46.0) % MCV 87.9 (80.0-98.0) fL MCH 28.6 (27.0-32.0) pg MCHC 32.6 (31.0-37.0) g/dL RDW Std Deviation 42.6 (28.0-62.0) fl RDW Coeff of Jose 13 (11.0-15.0) % Plt Count 194 (150-400) K/uL MPV 11.30 (7.40-12.00) fL Neut % (Auto) 29.3 L (48.0-80.0) % Lymph % (Auto) 59.0 H (16.0-40.0) % [place] % (Auto) 7.4 (0.0-15.0) % Eos % (Auto) 3.7 (0.0-7.0) % Baso % (Auto) 0.6 (0.0-1.5) % Neut # (Auto) 2.6 (1.4-5.7) K/uL Lymph # (Auto) 5.1 H (0.6-2.4) K/uL [place] # (Auto) 0.6 (0.0-0.8) K/uL Eos # (Auto) 0.3 (0.0-0.7) K/uL Baso # (Auto) 0.1 (0.0-0.1) K/uL Nucleated RBC % 0.0 /100WBC Nucleated RBCs # 0 K/uL Sodium 140 (136-145) mmol/L Potassium 4.2 (3.5-5.1) mmol/L Chloride 102 (98-107) mmol/L Carbon Dioxide 31.3 (21.0-32.0) mmol/L BUN 19 H (7.0-18.0) mg/dL Creatinine 0.8 (0.6-1.0) mg/dL Est Cr Clr Drug Dosing 44.99 mL/min Estimated GFR (MDRD) > 60.0 ml/min Glucose 124 H (74-106) mg/dL Calcium 9.2 (8.5-10.1) mg/dL Meds: Medications Discontinued Medications Generic Name Dose Route Start Last Admin Trade Name Freq PRN Reason Stop Dose Admin Albuterol/Ipratropium Confirm 11/09/20 13:17 11/09/20 13:26 Albuterol/Ipratropium 3.0-0.5 Mg/3 Ml Neb Soln Administered 11/09/20 13:18 3 ml Dose Administration 3 ml .ROUTE .STK-MED ONE Albuterol/Ipratropium 3 ml 11/09/20 14:27 11/09/20 14:37 Albuterol/Ipratropium 3.0-0.5 Mg/3 Ml Neb Soln NEB 11/09/20 14:28 3 ml ONETIME ONE Administration Magnesium Sulfate 1 gm/ Sodium 52 mls @ 104 mls/hr 11/09/20 13:45 11/09/20 14:06 Chloride IV 11/09/20 14:14 104 mls/hr NOW ONE Administration Methylprednisolone Sodium Succinate 125 mg 11/09/20 13:24 11/09/20 13:31 Methylprednisolone Sodium Succinate 125 Mg/2 Ml Sdv IVPUSH 11/09/20 13:25 125 mg ONETIME ONE Administration - Re-Assessments/Exams Free Text/Narrative Re-Assessment/Exam: 11/09/20 15:01 Patient oxygen saturations improved. Patient also states she is breathing better feels fine. Asked patient how she feels with this patient dressings were to go home. Patient was given DuoNeb steroids magnesium. Will discharge home on steroids and strict return precautions. Departure - Departure Time of Disposition: 15:01 Disposition: Home, Self-Care 01 Condition: Good Clinical Impression: Asthma exacerbation Qualifiers: Asthma severity: moderate Asthma persistence: persistent Qualified Code(s): J45.41 - Moderate persistent asthma with (acute) exacerbation - Discharge Information *PRESCRIPTION DRUG MONITORING PROGRAM REVIEWED*: Not Applicable *COPY OF PRESCRIPTION DRUG MONITORING REPORT IN PATIENT NADINE: Not Applicable Prescriptions: predniSONE [Prednisone] 50 mg PO DAILY 5 Days #5 tablet Instructions: Asthma, Adult Forms: ED Department Discharge Additional Instructions: The following information is given to patients seen in the emergency department who are being discharged to home. This information is to outline your options for follow-up care. We provide all patients seen in our emergency department with a follow-up referral. The need for follow-up, as well as the timing and circumstances, are variable depending upon the specifics of your emergency department visit. If you don't have a primary care physician on staff, we will provide you with a referral. We always advise you to contact your personal physician following an emergency department visit to inform them of the circumstance of the visit and for follow-up with them and/or the need for any referrals to a consulting specialist. The emergency department will also refer you to a specialist when appropriate. This referral assures that you have the opportunity for follow-up care with a specialist. All of these measure are taken in an effort to provide you with optimal care, which includes your follow-up. Under all circumstances we always encourage you to contact your private physician who remains a resource for coordinating your care. When calling for follow-up care, please make the office aware that this follow-up is from your recent emergency room visit. If for any reason you are refused follow-up, please contact the [facility] Emergency Department at and asked to speak to the emergency department charge nurse. Please follow up with your primary care physician. If you do not have a primary care physician, see below: [facility] [address] [place] [id number] My [facility] [address] [place] [address] These follow-up with your primary care physician. We sent you home on another 5 days of steroids. Take this medications. If you have any increased shortness of breath please return to ED. Critical Care Note - Critical Care Note Total Time (mins): 40 Comments: Critical Care Procedure Note Authorized and Performed by: Dr. Brown Total critical care time: Approximately Due to a high probability of clinically significant, life threatening deterior ation, the patient required my highest level of preparedness to intervene emergently and I personally spent this critical care time directly and personally managing the patient. This critical care time included obtaining a history; examining the patient; pulse oximetry; ordering and review of studies; arranging urgent treatment with development of a management plan; evaluation of patient's response to treatment; frequent reassessment; and, discussions with other providers. This critical care time was performed to assess and manage the high probability of imminent, life-threatening deterioration that could result in multi-organ failure. It was exclusive of separately billable procedures and treating other patients and teaching time. Sepsis Event Note (ED) - Evaluation Sepsis Screening Result: No Definite Risk - Focused Exam Vital Signs: Vital Signs Temp Pulse Resp BP Pulse Ox 11/09/20 14:05 81 18 135/87 94 L 11/09/20 13:12 97.6 F 103 H 18 179/114 H 94 L - My Orders Last 24 Hours: My Active Orders 11/09/20 14:27 RT Aerosol Therapy [RC] ASDIRECTED - Assessment/Plan Last 24 Hours: My Active Orders 11/09/20 14:27 RT Aerosol Therapy [RC] ASDIRECTED Plan: Patient is a 75-year-old female who presents today for shortness of breath. Patient is written for inhaler. Patient has wheezing on exam we will give nebs and steroids and reassess.
[2020-11-09] MEDS ORDERED: methylPREDNISolone Sodium Succinate 125 MG/2 ML SDV IVPUSH ONE (13:24)
[2020-11-09] MEDS ORDERED: Magnesium Sulfate (4.06 MEQ/ML) 5 GM/10 ML SDV IV SCH (13:30)
[2020-11-09 13:47] LABS: BLOOD UREA NITROGEN,BUN 19 mg/dL (7.0-18.0); CARBON DIOXIDE,CO2 31.3 mmol/L (21.0-32.0); CHLORIDE,CL 102 mmol/L (98-107); GLUCOSE RANDOM 124 mg/dL (74-106); POTASSIUM,K 4.2 mmol/L (3.5-5.1); SODIUM,NA 140 mmol/L (136-145)
--- NOTE | 2020-11-09 14:16 | CR ---
INDICATION: asthma wheezing. 1 image sent. 17-sep-2018 TECHNIQUE: Chest 1 view. COMPARISON: 09/17/18 FINDINGS: Cardiovascular and mediastinum: Heart size and vasculature are normal in caliber and appearance. Mediastinum is within normal limits. Lungs and pleural space: Lungs are clear. No sign of infiltrate or mass. No sign of pleural effusion. No pneumothorax. Bones and soft tissues: No significant findings. IMPRESSION: Unremarkable chest. Dictated by: Cesar Barahona MD @ 11/09/2020 14:15:10 (Electronically Signed)
[2020-11-09] MEDS ORDERED: Albuterol/Ipratropium 3.0-0.5 MG/3 ML Neb Soln NEB ONE (14:27)
[2020-11-09 15:29] VITALS: BP 155/89; PULSE 84
== END 2020-11-09 15:30 | disposition home or self-care (01) ==
LOC: MW.ED 13:09
DX: J45.41 Moderate persistent asthma with (acute) exacerbation (principal); I10 Essential (primary) hypertension; R00.0 Tachycardia, unspecified; Z87.891 Personal history of nicotine dependence; Z79.899 Other long term (current) drug therapy
CPT/HCPCS: 36415; 71045; 80048; 85025; 93005; 94640; 96365; 96375; 99285; J2930; J3475; J7620-GY

== ENCOUNTER 2021-01-02 05:18 | Emergency (ER) | payer OTHER, SELFPAY ==
[2021-01-02] MEDS ORDERED: Albuterol/Ipratropium 3.0-0.5 MG/3 ML Neb Soln NEB ONE (05:25)
[2021-01-02] MEDS ORDERED: Sodium Chloride 0.9% 10 ML Syringe FLUSH PRN (05:36)
[2021-01-02] MEDS ORDERED: methylPREDNISolone Sodium Succinate 125 MG/2 ML SDV IVPUSH ONE (05:36)
[2021-01-02] MEDS ORDERED: Sodium Chloride 0.9% 2.5 ML Syringe FLUSH PRN (05:36)
--- NOTE | 2021-01-02 05:36 | EDM.PDOC ---
ED HPI GENERAL MEDICAL PROBLEM - General Chief Complaint: Respiratory Problem Stated Complaint: PROBLEM BREATHING Time Seen by Provider: 01/02/21 05:40 - History of Present Illness INITIAL COMMENTS - FREE TEXT/NARRATIVE: HISTORY AND PHYSICAL: History of present illness: This is a 75-year-old female with history significant for asthma who presents ER today complaining of shortness of breath and wheezing that started today. Vijay chawla's granddaughter reports that she ran out of her albuterol and did not get it filled. Patient denies any recent fevers, shakes, chills, nausea, vomiting, diarrhea, dysuria, frequency, urgency, chest pain, abdominal pain. Patient denies any diarrhea. Patient denies any change in taste or smell. Patient denies any Covid concerns or exposures. Patient did have a test of coronavirus approximately 5 months ago that was negative. Patient has not had a Covid vaccination as of yet. Patient has any cough cold or congestion. Patient denies any lower extremity edema or recent weight gain. Review of systems: As per history of present illness and below otherwise all systems reviewed and negative. Past medical history: As per history of present illness and as reviewed below otherwise no ncontributory. Surgical history: As per history of present illness and as reviewed below otherwise noncontributory. Social history: No reported history of drug abuse. Family history: As per history of present illness and as reviewed below otherwise noncontributory. Physical exam: This patient was seen and evaluated during the 2019 SARS-CoV-2 novel coronavirus pandemic period. Community viral transmission is ongoing at time of this encounter and the emergency department is operating under pandemic response procedures. Constitutional: Patient is oriented to person, place, and time. Appears well- developed and well-nourished. No distress. HEENT: Moist mucous membranes Head: Normocephalic and atraumatic Eyes: Right eye exhibits no discharge. Left eye exhibits no discharge. No s cleral icterus Neck: Normal range of motion. No tracheal deviation present. Regular rate and rhythm Cardiovascular: Normal rate and regular rhythm. Pulmonary: Effort normal, no respiratory distress. Patient with expiratory wheezing. Abdominal: No distention Musculoskeletal: Normal range of motion Neurologic: Alert and oriented to person, place and time. Skin: [place], warm and dry. Psychiatric: Normal mood and affect. Behavior is normal. Judgment and thought content normal. Nursing note and vital signs have been reviewed Diagnostics: Pulse ox of 98% on room air Chest Xray: Normal cardiac silhouette No infiltrates or effusions identified. No PTX No evidence of acute bony fracture. As interpreted by ER MD: Pb Renteria: Albuterol/Atrovent nebulizer in the ED Prednisone 50 mg p.o. Assessment and plan: This is a 75-year-old female with a history of asthma who ran out of her albuterol inhalers who presents ER today complaining of shortness of breath and wheezing. Patient will have a chest x-ray obtained, albuterol treatment/Atrovent treatment, prednisone and a coronavirus test. 6:30 AM: Patient reports she feels much better after the albuterol treatment and back to baseline. Patient reports he is no longer short of breath. Patient's chest x-ray is unremarkable. Patient's labs are all within normal limits. Patient will be discharged home pending her Covid test with a prescription for prednisone as well as albuterol MDI. Patient is ambulating in the ED without any difficulty or shortness of breath. Reassessment at the time of disposition demonstrates that the patient is in no acute distress. The patient has remained stable throughout the entire ED visit and is without objective evidence for acute process requiring urgent intervention or hospitalization. The patient is stable for discharge, counseling is provided as documented above, discussed symptomatic treatment and specific conditions for return. I have spoken with the patient/caregiver and discussed todays findings, in addition to providing specific details for the plan of care. Questions are answered and there is agreement with the plan. Definitive disposition and diagnosis as appropriate pending reevaluation and review of above. - Related Data Allergies Allergy/AdvReac Type Severity Reaction Status Date / Time No Known Allergies Allergy Verified 11/09/20 13:12 Home Meds: Home Meds Albuterol [IJD: Albuterol HFA] 2 puff INH ASDIRECTED PRN #1 inhaler 08/12/17 [Rx] Albuterol/Ipratropium [DuoNeb 3.0-0.5 MG/3 ML] 1 dose INH Q4HR PRN #1 box 07/28/18 [Rx] Albuterol Sulfate [Albuterol Sulfate HFA] 8.5 gm INH BID PRN #1 inhaler 11/09/20 [Rx] predniSONE [Prednisone] 50 mg PO DAILY 5 Days #5 tablet 11/09/20 [Rx] Albuterol Sulfate [Albuterol Sulfate HFA] 8.5 gm INH Q6H PRN #1 inhaler 01/02/21 [Rx] predniSONE [Prednisone] 50 mg PO DAILY #5 tablet 01/02/21 [Rx] Past Medical History - Past Health History Medical/Surgical History: Denies Medical/Surgical History HEENT History: Reports: None Cardiovascular History: Reports: Hypertension Respiratory History: Reports: Asthma Gastrointestinal History: Reports: None Genitourinary History: Reports: None 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 [employer]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 History: Reports: Musculoskeletal History: Reports: None Neurological History: Reports: None Psychiatric History: Reports: None Endocrine/Metabolic History: Reports: None Hematologic History: Reports: None Immunologic History: Reports: None Oncologic (Cancer) History: Reports: None Dermatologic History: Reports: None - Infectious Disease History Infectious Disease History: Reports: Chicken Pox - Past Surgical History Head Surgeries/Procedures: Reports: None HEENT Surgical History: Reports: None Cardiovascular Surgical History: Reports: None GI Surgical History: Reports: None Female Surgical History: Reports: None Endocrine Surgical History: Reports: None Neurological Surgical History: Reports: None Musculoskeletal Surgical History: Reports: None Dermatological Surgical History: Reports: None Social & Family History - Family History Family Medical History: No Pertinent Family History - Caffeine Use Caffeine Use: Reports: Coffee Caffeine Use Comment: daily ED ROS GENERAL - Review of Systems Review Of Systems: See Below ED EXAM, GENERAL - Physical Exam Exam: See Below #1 Interpretation EKG Interpretation Comments: EKG: As interpreted by ER physician: Pb: Nonspecific ST-T wave abnormalities Normal axis No evidence of ST elevation OK Normal sinus rhythm with occasional PACs at a heart rate of 77 Course - Vital Signs Last Recorded V/S: Last Vital Signs Temp 98 F 01/02/21 05:27 Pulse 85 01/02/21 05:27 Resp 28 H 01/02/21 05:27 BP 181/90 H 01/02/21 05:27 Pulse Ox 96 01/02/21 05:27 - Orders/Labs/Meds Orders: Active Orders 24 hr Category Date Time Status EKG Documentation Completion [RC] AM Care 01/02/21 05:36 Active RT Aerosol Therapy [RC] ASDIRECTED Care 01/02/21 05:26 Active CORONAVIRUS COVID-19 OMER [MOLEC] Stat Lab 01/02/21 05:53 Received Sodium Chloride 0.9% [Saline Flush] Med 01/02/21 05:36 Active 10 ml FLUSH ASDIRECTED PRN Sodium Chloride 0.9% [Saline Flush] Med 01/02/21 05:36 Active 2.5 ml FLUSH ASDIRECTED PRN Saline Lock Insert [OM.PC] Stat Oth 01/02/21 05:36 Ordered Medication Orders Sodium Chloride (Sodium Chloride 0.9% 10 Ml Syringe) 10 ml FLUSH ASDIRECTED PRN PRN Reason: Keep Vein Open Last Admin: 01/02/21 05:49 Dose: 10 ml Documented by: ALBIN Sodium Chloride (Sodium Chloride 0.9% 2.5 Ml Syringe) 2.5 ml FLUSH ASDIRECTED PRN PRN Reason: Keep Vein Open Last Admin: 01/02/21 05:49 Dose: 2.5 ml Documented by: ALBIN Labs: Laboratory Tests 01/02/21 01/02/21 Range/Units 05:25 05:25 WBC 8.67 (4.0-11.0) K/uL RBC 5.49 (4.30-5.90) M/uL Hgb 15.7 (12.0-16.0) g/dL Hct 48.2 H (36.0-46.0) % MCV 87.8 (80.0-98.0) fL MCH 28.6 (27.0-32.0) pg MCHC 32.6 (31.0-37.0) g/dL RDW Std Deviation 42.5 (28.0-62.0) fl RDW Coeff of Jose 13 (11.0-15.0) % Plt Count 246 (150-400) K/uL MPV 12.20 H (7.40-12.00) fL Neut % (Auto) 22.3 L (48.0-80.0) % Lymph % (Auto) 64.6 H (16.0-40.0) % [place] % (Auto) 7.5 (0.0-15.0) % Eos % (Auto) 5.0 (0.0-7.0) % Baso % (Auto) 0.6 (0.0-1.5) % Neut # (Auto) 1.9 (1.4-5.7) K/uL Lymph # (Auto) 5.6 H (0.6-2.4) K/uL [place] # (Auto) 0.7 (0.0-0.8) K/uL Eos # (Auto) 0.4 (0.0-0.7) K/uL Baso # (Auto) 0.1 (0.0-0.1) K/uL Nucleated RBC % 0.0 /100WBC Nucleated RBCs # 0 K/uL Sodium 141 (136-145) mmol/L Potassium 4.3 (3.5-5.1) mmol/L Chloride 102 (98-107) mmol/L Carbon Dioxide 29.3 (21.0-32.0) mmol/L BUN 16 (7.0-18.0) mg/dL Creatinine 0.7 (0.6-1.0) mg/dL Est Cr Clr Drug Dosing 67.01 mL/min Estimated GFR (MDRD) > 60.0 ml/min Glucose 128 H (74-106) mg/dL Calcium 8.5 (8.5-10.1) mg/dL Total Bilirubin 0.3 (0.2-1.0) mg/dL AST 31 (15-37) IU/L ALT 22 (14-63) IU/L Alkaline Phosphatase 97 (46-116) U/L Troponin I < 0.050 (0.000-0.056) ng/mL Total Protein 8.9 H (6.4-8.2) g/dL Albumin 4.0 (3.4-5.0) g/dL Globulin 4.9 H (2.6-4.0) g/dL Albumin/Globulin Ratio 0.8 L (0.9-1.6) Meds: Medications Generic Name Dose Route Start Last Admin Trade Name Freq PRN Reason Stop Dose Admin Sodium Chloride 10 ml 01/02/21 05:36 01/02/21 05:49 Sodium Chloride 0.9% 10 Ml Syringe FLUSH 10 ml ASDIRECTED PRN Administration Keep Vein Open Sodium Chloride 2.5 ml 01/02/21 05:36 01/02/21 05:49 Sodium Chloride 0.9% 2.5 Ml Syringe FLUSH 2.5 ml ASDIRECTED PRN Administration Keep Vein Open Discontinued Medications Generic Name Dose Route Start Last Admin Trade Name Freq PRN Reason Stop Dose Admin Albuterol/Ipratropium 3 ml 01/02/21 05:25 01/02/21 05:26 Albuterol/Ipratropium 3.0-0.5 Mg/3 Ml Neb Soln NEB 01/02/21 05:26 3 ml ONETIME ONE Administration Methylprednisolone Sodium Succinate 125 mg 01/02/21 05:36 01/02/21 05:49 Methylprednisolone Sodium Succinate 125 Mg/2 Ml Sdv IVPUSH 01/02/21 05:37 125 mg ONETIME ONE Administration Departure - Departure Time of Disposition: 06:32 Disposition: Home, Self-Care 01 Condition: Good Clinical Impression: Acute asthma exacerbation Qualifiers: Asthma severity: mild Asthma persistence: intermittent Qualified Code(s): J45.21 - Mild intermittent asthma with (acute) exacerbation - Discharge Information Instructions: Asthma, Adult, Metered Dose Inhaler (No Spacer Used) Referrals: PCP,None [Primary Care Provider] - Forms: ED Department Discharge Additional Instructions: You were seen and evaluated in the ER today secondary to shortness of breath and wheezing. This is most likely related to your asthma and not having your albuterol inhaler readily accessible for you. In the ER you have been given a albuterol/Atrovent nebulized treatment and it appears to have significantly improved your symptoms. Your x-ray and all your blood tests are all within normal limits. You will be discharged home with a prescription for prednisone to take as directed as well as an albuterol inhaler to get filled. Please make sure that you always have your medicines handy in order to avoid having further exacerbations of your asthma. The following information is given to patients seen in the emergency department who are being discharged to home. This information is to outline your options for follow-up care. We provide all patients seen in our emergency department with a follow-up referral. The need for follow-up, as well as the timing and circumstances, are variable depending upon the specifics of your emergency department visit. If you don't have a primary care physician on staff, we will provide you with a referral. We always advise you to contact your personal physician following an emergency department visit to inform them of the circumstance of the visit and for follow-up with them and/or the need for any referrals to a consulting specialist. The emergency department will also refer you to a specialist when appropriate. This referral assures that you have the opportunity for follow-up care with a specialist. All of these measure are taken in an effort to provide you with optimal care, which includes your follow-up. Under all circumstances we always encourage you to contact your private physician who remains a resource for coordinating your care. When calling for follow-up care, please make the office aware that this follow-up is from your recent emergency room visit. If for any reason you are refused follow-up, please contact the [facility] Emergency Department at and asked to speak to the emergency department charge nurse. [facility] [address] [place] [id number] [facility] [address] [place] [id number] Sepsis Event Note (ED) - Evaluation Sepsis Screening Result: No Definite Risk - Focused Exam Vital Signs: Vital Signs Temp Pulse Resp BP Pulse Ox 01/02/21 05:27 98 F 85 28 H 181/90 H 96 - My Orders Last 24 Hours: My Active Orders 01/02/21 05:26 RT Aerosol Therapy [RC] ASDIRECTED 01/02/21 05:36 EKG Documentation Completion [RC] AM Sodium Chloride 0.9% [Saline Flush] 10 ml FLUSH ASDIRECTED PRN Sodium Chloride 0.9% [Saline Flush] 2.5 ml FLUSH ASDIRECTED PRN Saline Lock Insert [OM.PC] Stat 01/02/21 05:53 CORONAVIRUS COVID-19 OMER [MOLEC] Stat - Assessment/Plan Last 24 Hours: My Active Orders 01/02/21 05:26 RT Aerosol Therapy [RC] ASDIRECTED 01/02/21 05:36 EKG Documentation Completion [RC] AM Sodium Chloride 0.9% [Saline Flush] 10 ml FLUSH ASDIRECTED PRN Sodium Chloride 0.9% [Saline Flush] 2.5 ml FLUSH ASDIRECTED PRN Saline Lock Insert [OM.PC] Stat 01/02/21 05:53 CORONAVIRUS COVID-19 OMER [MOLEC] Stat
[2021-01-02 06:00] LABS: BLOOD UREA NITROGEN,BUN 16 mg/dL (7.0-18.0); CARBON DIOXIDE,CO2 29.3 mmol/L (21.0-32.0); CHLORIDE,CL 102 mmol/L (98-107); GLUCOSE RANDOM 128 mg/dL (74-106); POTASSIUM,K 4.3 mmol/L (3.5-5.1); SODIUM,NA 141 mmol/L (136-145)
--- NOTE | 2021-01-02 06:24 | CR ---
Indication: Shortness of breath Technique: Chest 1 view Comparison: Chest x-ray 11/09/2020 Findings/Impression: Cardiovascular and mediastinum: Borderline cardiomegaly with aortic tortuosity and atherosclerotic calcification. Lungs and pleural space: Lungs are clear. No sign of infiltrate or mass. No sign of pleural effusion. No pneumothorax. Bones and soft tissues: No acute findings. Dictated by Rober Del Rio MD @ 01/02/2021 6:22:[address] Rober Del Rio @ Jan 02 2021 6:22AM
[2021-01-02 06:44] VITALS: BP 170/90; PULSE 75
== END 2021-01-02 06:42 | disposition home or self-care (01) ==
LOC: MW.ED 05:18
DX: J45.21 Mild intermittent asthma with (acute) exacerbation (principal); I10 Essential (primary) hypertension; Z20.822 Contact with and (suspected) exposure to COVID-19
CPT/HCPCS: 36415; 71045; 80053; 84484; 85025; 87635; 93005; 96374; 99285; J2930; 93010; 99284; J7620-GY; U0002